=== PATIENT | female | born 1965 | race Caucasian/White ===

== ENCOUNTER 2016-09-18 11:53 | Inpatient (IN) | payer BC ==
--- NOTE | ~2016-09-18 | HP ---
History And Physical [place] [address] [facility] [place]. [address] NAME: MEGAN JARVIS : 65 STATUS : ADM Nicole PAT#: [id number] AGE: 51 ADM/REG DATE : 09/18/16 MR#: [id number] REPORT SERV DATE: 09/19/16 DICTATED BY: TAMERA CASTELLON DATE: 09/18/16 REPORT STATUS : Draft TRANSCRIBED BY: MODL DATE: 09/18/16 DATE OF ADMISSION: 09/18/2016 CHIEF COMPLAINT: Tingling of hands and nausea and vomiting for multiple days. HISTORY OF PRESENT ILLNESS: The patient is a 51-year-old female with past medical history of back pain, additionally hypertension with recent increase in blood pressure medication lisinopril. Additionally had back pain that was significant enough that she went to see Dr. Cordero for evaluation, had epidural placement, but was told may require surgical intervention. The patient reports that although pain is still present in back, the patient has had significant nausea and vomiting that was occurring prior to epidural as nausea and vomiting started on Saturday, after it was done on Saturday to the point where she has also noticed decreased urine output. She does have chronic constipation, although she is urinating, she reports that has significantly decreased, not eaten in multiple days. Symptoms are essentially profound beginning to have multiple episodes of weakness that has been mild and constant, no pain or radiating symptoms except for in back that has been chronic, but no abdominal pain. Has reported to have occasional dark emesis, but this has not been reproduced in the emergency room. She does have nausea, vomiting, weakness. No fevers, diarrhea, chills. She did have constipation. She has not had a bowel movement x3 days. There were no worsening episodes or symptoms, but no relieving symptoms either. Epidural site has not had any change. The patient does not have any current slurring of speech or additional neuro changes except for pain, cramping, which is improved with IV fluids given in emergency room. REVIEW OF SYSTEMS: Additional 10-point review of systems negative except for that noted in the HPI. PAST MEDICAL HISTORY: Noted for chronic back pain, hypertension, depression, constipation. SURGICAL PROCEDURE: Epidural. SOCIAL HISTORY: One pack per day x30 years. No alcohol or illicits. FAMILY HISTORY: Stroke and heart disease. ALLERGIES: NO KNOWN DRUG ALLERGIES. HOME MEDICATIONS: Tylenol, Benadryl, estradiol, Neurontin, [place], lisinopril, Zanaflex, Phenergan, mag citrate. PHYSICAL EXAMINATION: VITAL SIGNS: The patient's blood pressure 98/56, has been noted slightly lower in upper lower 80s but responded to her first liter of IV fluids. Additionally, temperature 98.4, pulse 121 down to 93, respirations 20 down to 18, O2 saturations 97% on room air. GENERAL: Mild discomfort, but otherwise in no acute distress except for back discomfort. Well developed and well nourished. History And Physical [place] [address] [facility] [place]. [address] NAME: MEGAN JARVIS : 65 STATUS : ADM Nicole PAT#: [id number] AGE: 51 ADM/REG DATE : 09/18/16 MR#: [id number] REPORT SERV DATE: 09/19/16 DICTATED BY: TAMERA CASTELLON DATE: 09/18/16 REPORT STATUS : Draft TRANSCRIBED BY: GILDA DATE: 09/18/16 EYES: No scleral icterus. EOMI. ENT: Nares patent. Tongue midline. Dry mucous membranes. Dentures. Cerumen impaction in right ear over the left. RESPIRATORY: Clear to auscultation. No wheezes, rales, or rhonchi at this time. CV: Regular rate. Mildly tachycardic. No rubs or gallops. Mildly hypotensive. GI: Soft, nontender, was reported initial tender to palpation, but not currently. No reproducible McBurney point or negative rebound. : Mueller. MUSCULOSKELETAL: Moves all extremities x4. Symmetrical strength. SKIN: Warm and dry, no acute tenting, but does have dry skin diffusely with dry mucous membranes. LYMPH: No cervical or supraclavicular lymphadenopathy. HEME: No bleeding or bruising. NEURO: Alert and oriented. Moves all extremities x4. Does have symmetrical vocal val. Eyes, EOMI. Nose or mouth, symmetrical smile. Symmetrical wrinkled brow. Symmetrical strength in hands and feet bilaterally. Gait not tested. PSYCH: Appropriate mood and affect. LABORATORY DATA: Lactate 1.3. CT of the abdomen and pelvis performed due to recent procedure, small hiatal hernia. No acute abnormalities appreciated. Portable chest, no acute processes. Brain without contrast, negative noncontrast CT. Drug screen positive for opioids. Urinalysis, trace ketone, 100 protein, negative leukocyte esterase, nitrite. Type and cross was also performed A positive. Antibody screen negative. Sodium 137, potassium 3.0, chloride 86, bicarb 36, BUN and creatinine 29 and 3.87, glucose 111. Tylenol salicylate and alcohol level negative. LFTs within normal limits. CBC: WBC count 19.1, H and H 15.7 and 44.9, platelets 344. Her EKG still currently pending. ASSESSMENT: 1. Acute kidney injury. 2. Nausea and vomiting. 3. Back pain, chronic. 4. Hypertension history with current hypotension. 5. Hypokalemia. 6. Elevated bilirubin. 7. Constipation. 8. Tobacco use. 9. Ear pain. 10.Leukocytosis with systemic inflammatory response syndrome, improving. PLAN: 1. ASHU. Hypotensive, hold lisinopril with recent increase nausea and vomiting. Unclear if this is secondary to hypotension episode with recent increase in medications versus pain, also made worse by nausea and vomiting. We will check urine lytes. IV fluids. No signs or symptoms of acute infection. UA is negative. The patient has already been given Rocephin. Initially anticipating positive UA. We will monitor urinalysis. If History And Physical [address] [address] NAME: MEGAN JARVIS : 65 STATUS : ADM Nicole PAT#: [id number] AGE: 51 ADM/REG DATE : 09/18/16 MR#: [id number] REPORT SERV DATE: 09/19/16 DICTATED BY: TAMEAR CASTELLON DATE: 09/18/16 REPORT STATUS : Draft TRANSCRIBED BY: MODBrunilda DATE: 09/18/16 no improvement made, we will defer to possible renal evaluation. We will defer to a.m. team. 2. Nausea and vomiting. Unclear if this was secondary to multifactorial with mild uremia, hypotension, recent procedure, volume depletion, and electrolyte abnormalities. The patient does have sequelae of volume depletion ASHU and hypokalemia, IV fluids supportive treatment. The patient has already started to tolerate medications at this time. Tolerate ice chips at this time. 3. Does have mild elevation in the bilirubin. We will monitor. 4. Chronic back pain, recent epidural. Discussed with Dr. Cordero p.r.n. with blood pressure holding. 5. Hypertension with hypotension. Hold lisinopril and increase IV fluids. 6. Hypokalemia. IV fluids and IV replacement and p.o. potassium. 7. Elevated bilirubin likely secondary to nausea and vomiting. We will repeat recheck. No acute abdominal pain or tenderness. Ultrasound if becomes symptomatic and monitor for resolution of bilirubin. No history of gallbladder surgery. 8. Constipation p.r.n. 9. Tobacco use. Nicotine patch. 10.Ear pain. Does have right cerumen impaction, no signs and symptoms of acute infection. 11.Leukocytosis with SIRS. Check cultures, has had recent surgery, but no acute signs of infection. Heart rate and respiratory rate have already improved with IV fluids likely secondary to volume depletion and ASHU. The patient received a dose of Rocephin in the emergency room. I believe this was secondary to possible concern for UTI; however, UA is currently negative. We will monitor and hold antibiotics. Discussed with Dr. Cordero also. No signs and symptoms of acute site infection. One dose IV Rocephin has already been given in the emergency room. DDN/MODL Tamera Castellon MD / [id number] CC: Nina Siu M.D.
--- NOTE | ~2016-09-18 | DS ---
Discharge Summary [facility] [address] [facility] [place]. [address] NAME: MEGAN JARVIS : 65 STATUS : DIS IN PAT#: [id number] AGE: 51 ADM/REG DATE : 09/18/16 MR#: [id number] REPORT SERV DATE: 09/21/16 DICTATED BY: WILBERT DELVALLE DATE: 09/20/16 REPORT STATUS : Draft TRANSCRIBED BY: MODBrunilda DATE: 09/20/16 ADMISSION DATE: 09/18/2016 DISCHARGE DATE: 09/20/2016 DISCHARGE DIAGNOSES: 1. Acute kidney injury due to severe dehydration, present on admission, now resolved. 2. Intractable nausea and vomiting, resolved. 3. Chronic back pain. 4. Hypertension with hypotension during this hospitalization, likely related to above. 5. Hypokalemia. 6. Smoking. 7. Leukocytosis with systemic inflammatory response syndrome, present on admission, now resolved. CONSULTS: None. PROCEDURES: None. HOSPITAL COURSE: This is a 51-year-old lady who was admitted to the hospital with intractable nausea and vomiting that led to dehydration and acute kidney injury. For details, please refer to H and P by Dr. Ewing. In summary, the patient was admitted for IV fluid hydration. The patient's creatinine on admission was 3.87, but by the third day of the hospital stay, it had improved and normalized to 0.6. The patient also had a leukocytosis of 19,000 on admission which normalized to 10 without any antibiotic therapy. It is unclear what caused the patient to have intractable nausea and vomiting, but that also has subsided since admission, and the patient really did not even require antiemetics. The patient tolerated a regular diet well, and the patient is now considered stable for discharge home with close outpatient followup instructions. Of note, the patient has a history of hypertension, and she is on hydrochlorothiazide as well as lisinopril. The patient has been borderline hypotensive throughout the hospital stay here, and thus, her blood pressure medications have been held until re-evaluation by her primary care physician. DISPOSITION: Home. DISCHARGE MEDICATIONS: No changes except for discontinuation of lisinopril and hydrochlorothiazide. FOLLOWUP: Please follow up with PCP in the next one to two weeks. A total of 25 minutes were spent in coordinating this patient's discharge today. UMER/GILDA Wilbert Simpson Discharge Summary [facility] [address] [place]. [address] NAME: MEGAN JARVIS : 65 STATUS : DIS IN PAT#: [id number] AGE: 51 ADM/REG DATE : 09/18/16 MR#: [id number] REPORT SERV DATE: 09/21/16 DICTATED BY: WILBERT DELVALLE DATE: 09/20/16 REPORT STATUS : Draft TRANSCRIBED BY: MODL DATE: 09/20/16 MD Lizandro / [id number] CC: MD Lenora Melgoza M.D.
[2016-09-18 11:52] LABS: BASOPHILS 0.2 %; BASOPHILS ABSOLUTE 0.03 10/3/uL (0.0-0.16); EOSINOPHILS 0.1 %; EOSINOPHILS ABSOLUTE 0.01 10/3/uL (0.0-0.53); HEMATOCRIT 44.9 % (36.0-48.0); HEMOGLOBIN 15.7 g/dL (12.0-16.0); IMMATURE GRANULOCYTES 0.5 %; IMMATURE GRANULOCYTES ABSOLUTE 0.09 10/3/uL (0.0-0.11); LYMPHOCYTES 12.5 %; LYMPHOCYTES ABSOLUTE 2.38 10/3/uL (0.67-4.30); MEAN CORPUSCULAR HEMOGLOB 30.2 pg (26.0-34.0); MEAN PLATELET VOLUME 10.2 fL (9.2-13.0); MONOCYTES 10.4 %; MONOCYTES ABSOLUTE 1.99 10/3/uL (0.21-1.20); NEUTROPHILS 76.3 %; NEUTROPHILS ABSOLUTE 14.61 10/3/uL (2.02-8.40); RBC DISTRIBUTION WIDTH 13.5 % (12.0-16.0)
[2016-09-18 11:55] LABS: ER CBC TAT 0 Hrs 08 Mins; MANUAL DIFF NO %; MEAN CORPUSCULAR VOLUME 86.3 fL (80-100); PLATELET COUNT 344 10/3/uL (150-400); WHITE BLOOD CELLS 19.1 10/3/uL (4.5-10.5)
[2016-09-18 12:10] LABS: ALBUMIN 4.5 G/DL (3.5-5.0); ALKALINE PHOSPHATASE 90 U/L (45-117); CALCIUM, SERUM 9.1 MG/DL (8.5-10.4); DIRECT BILIRUBIN 0.3 MG/DL (0.0-0.4); SGOT(AST) 15 U/L (5-40); SGPT(ALT) 18 U/L (5-65); SODIUM, SERUM 137 MMOL/L (135-148)
[2016-09-18 12:11] LABS: ALCOHOL < 10 MG/DL (0); BUN (BLOOD UREA NITROGEN) 29 MG/DL (6-23); CHLORIDE, SERUM 86 MMOL/L (96-112); CO2 (CARBON DIOXIDE) 36 MMOL/L (24-34); CREATININE 3.87 MG/DL (0.55-1.02); GFR AFRICAN AMERICAN 15 ML/MIN (>=60); GFR NON AFRICAN AMERICAN 13 ML/MIN (>=60); GLOBULIN 4.3 G/DL (2.5-4.1); GLUCOSE, SERUM 111 MG/DL (60-99); INDIRECT BILIRUBIN(NOT ORDER) 1.1 MG/DL (0.1-0.9); SALICYLATE < 1.7 MG/DL (-); TOTAL BILIRUBIN 1.4 MG/DL (0-1.2); TOTAL PROTEIN 8.8 G/DL (6.0-8.5)
[2016-09-18 12:12] LABS: ACETAMINOPHEN LEVEL (TYLENOL) < 2.0 MCG/ML (10.0-20.0)
[2016-09-18] MEDS ORDERED: ZANAFLEX 4 MG TA4 MG PO (13:21)
[2016-09-18] MEDS ORDERED: PRIN20 PO (13:21)
[2016-09-18] MEDS ORDERED: NORCO1 TAB PO (13:22)
[2016-09-18] MEDS ORDERED: ESTRACE1 MG PO (13:22)
[2016-09-18] MEDS ORDERED: NEUR600 PO (13:23)
[2016-09-18] MEDS ORDERED: BEN25 PO (13:24)
[2016-09-18] MEDS ORDERED: PHENERGAN PO (13:24)
[2016-09-18] MEDS ORDERED: ACET500CAP PO (13:25)
[2016-09-18] MEDS ORDERED: MAGNESIUM CITRATE PO (13:26)
[2016-09-18 13:59] LABS: ASCORBIC ACID (UR NOT ORDER) NEG (NEG); BILIRUBIN, URINE NEGATIVE (NEG); ER URINALYSIS TAT 0 Hrs 00 Mins; KETONE, URINE TRACE MG/DL (NEG); LEUKOCYTE ESTERASE(NOT OR NEG (NEG); NITRITE (URINE) NEG (NEG); WBC (NOT ORDERED) (RFLEX) 3 (0-5)
[2016-09-18 14:20] LABS: AMPHETAMINES (NOT ORD) NEG (NEG); BARBITURATES (NOT ORDERED NEG (NEG); BENZODIAZEPINES (NOT ORD) NEG (NEG); CANNABINOIDS (THC) NEG (NEG); COCAINE (NOT ORDERED) NEG (NEG); OPIATES POS (NEG); PHENCYCLIDINE(PCP) NEG (NEG); TRICYCLICS NEG (NEG)
[2016-09-18 14:50] LABS: LACTATE 1.3 MMOL/L (0.3-2.4)
[2016-09-18 18:54] LABS: HEMOGLOBIN 13.1 g/dL (12.0-16.0)
[2016-09-18 18:55] LABS: HEMATOCRIT 39.2 % (36.0-48.0)
[2016-09-18 19:48] LABS: PHOSPHORUS, SERUM 2.2 MG/DL (2.5-4.5); ULTRASENSITIVE TSH 0.804 MCIU/ML (0.358-3.740)
[2016-09-18 19:57] LABS: PROCALCITONIN 0.11 ng/mL (<0.5)
[2016-09-19 04:48] LABS: BASOPHILS 0.1 %; BASOPHILS ABSOLUTE 0.01 10/3/uL (0.0-0.16); EOSINOPHILS 0 %; HEMOGLOBIN 11.6 g/dL (12.0-16.0); IMMATURE GRANULOCYTES 0.4 %; IMMATURE GRANULOCYTES ABSOLUTE 0.06 10/3/uL (0.0-0.11); LYMPHOCYTES 12.6 %; LYMPHOCYTES ABSOLUTE 2.08 10/3/uL (0.67-4.30); MEAN CORPUS HGB CONC 33.6 g/dL (32.0-36.0); MEAN CORPUSCULAR HEMOGLOB 29.4 pg (26.0-34.0); MEAN CORPUSCULAR VOLUME 87.3 fL (80-100); MEAN PLATELET VOLUME 10.3 fL (9.2-13.0); MONOCYTES ABSOLUTE 1.32 10/3/uL (0.21-1.20); NEUTROPHILS 78.9 %; NEUTROPHILS ABSOLUTE 13.08 10/3/uL (2.02-8.40); PLATELET COUNT 265 10/3/uL (150-400); RBC DISTRIBUTION WIDTH 13.7 % (12.0-16.0); WHITE BLOOD CELLS 16.6 10/3/uL (4.5-10.5)
[2016-09-19 04:52] LABS: HEMATOCRIT 34.5 % (36.0-48.0); MANUAL DIFF NO %; RED CELL COUNT 3.95 10/6/uL (4.0-5.6)
[2016-09-19 06:48] LABS: CHLORIDE, SERUM 95 MMOL/L (96-112); SGOT(AST) 12 U/L (5-40); SGPT(ALT) 18 U/L (5-65); SODIUM, SERUM 137 MMOL/L (135-148)
[2016-09-19 06:50] LABS: A/G RATIO 0.9 (0.7-1.9); ALBUMIN 3.1 G/DL (3.5-5.0); ALKALINE PHOSPHATASE 65 U/L (45-117); BUN (BLOOD UREA NITROGEN) 25 MG/DL (6-23); CALCIUM, SERUM 7.3 MG/DL (8.5-10.4); CO2 (CARBON DIOXIDE) 28 MMOL/L (24-34); CREATININE 1.57 MG/DL (0.55-1.02); GFR AFRICAN AMERICAN 44 ML/MIN (>=60); GFR NON AFRICAN AMERICAN 38 ML/MIN (>=60); GLOBULIN 3.4 G/DL (2.5-4.1); GLUCOSE, SERUM 139 MG/DL (60-99); POTASSIUM, SERUM 2.9 MMOL/L (3.5-5.3); TOTAL BILIRUBIN 0.2 MG/DL (0-1.2); TOTAL PROTEIN 6.5 G/DL (6.0-8.5)
[2016-09-19 12:02] LABS: HEMATOCRIT 35.6 % (36.0-48.0); HEMOGLOBIN 11.7 g/dL (12.0-16.0)
[2016-09-20 05:53] LABS: BASOPHILS 0.2 %; BASOPHILS ABSOLUTE 0.02 10/3/uL (0.0-0.16); EOSINOPHILS 0.8 %; EOSINOPHILS ABSOLUTE 0.08 10/3/uL (0.0-0.53); HEMOGLOBIN 10.7 g/dL (12.0-16.0); IMMATURE GRANULOCYTES 0.5 %; IMMATURE GRANULOCYTES ABSOLUTE 0.05 10/3/uL (0.0-0.11); LYMPHOCYTES 29.6 %; LYMPHOCYTES ABSOLUTE 2.95 10/3/uL (0.67-4.30); MEAN CORPUS HGB CONC 32.4 g/dL (32.0-36.0); MEAN CORPUSCULAR HEMOGLOB 29.2 pg (26.0-34.0); MEAN PLATELET VOLUME 10.1 fL (9.2-13.0); MONOCYTES 7.8 %; MONOCYTES ABSOLUTE 0.78 10/3/uL (0.21-1.20); NEUTROPHILS 61.1 %; PLATELET COUNT 222 10/3/uL (150-400); RBC DISTRIBUTION WIDTH 13.7 % (12.0-16.0); RED CELL COUNT 3.66 10/6/uL (4.0-5.6)
[2016-09-20 06:02] LABS: MANUAL DIFF NO %; MEAN CORPUSCULAR VOLUME 90.2 fL (80-100)
[2016-09-20 06:10] LABS: CHLORIDE, SERUM 106 MMOL/L (96-112); CO2 (CARBON DIOXIDE) 29 MMOL/L (24-34); POTASSIUM, SERUM 4.3 MMOL/L (3.5-5.3); SODIUM, SERUM 141 MMOL/L (135-148)
[2016-09-20 06:11] LABS: BUN (BLOOD UREA NITROGEN) 15 MG/DL (6-23); CALCIUM, SERUM 8.3 MG/DL (8.5-10.4); CREATININE 0.66 MG/DL (0.55-1.02); GFR AFRICAN AMERICAN 119 ML/MIN (>=60); GFR NON AFRICAN AMERICAN 102 ML/MIN (>=60); GLUCOSE, SERUM 101 MG/DL (60-99)
== END 2016-09-20 12:44 | disposition home or self-care (01) | DRG 683 ==
LOC: ER 11:53 → 4SO 16:17 → ER/OF 16:42 → 6NO 17:17
PROVIDERS: Emergency Medicine; Internal Medicine; Student in an Organized Health Care Education/Training Program
DX: N17.9 Acute kidney failure, unspecified (principal); R65.10 Systemic inflammatory response syndrome (SIRS) of non-infectious origin without acute organ dysfunction; K59.00 Constipation, unspecified; E87.6 Hypokalemia; H61.21 Impacted cerumen, right ear; F17.210 Nicotine dependence, cigarettes, uncomplicated; E86.0 Dehydration; M51.26 Other intervertebral disc displacement, lumbar region; I10 Essential (primary) hypertension; F32.9 Major depressive disorder, single episode, unspecified; Z82.3 Family history of stroke
CPT/HCPCS: 36415; 70450; 71010; 74176; 80048; 80053; 80305; 80307; 81001; 82150; 82248; 82272; 82570; 83605; 83690; 83735; 83935; 84100; 84132; 84145; 84300; 84443; 85014; 85018; 85025; 86850; 86900; 86901; 87040; 87449; 93005; 96374; 99291; A9270-GY; C9113; J1170; J2405; J2930